=== PATIENT | female | born 1985 | race Caucasian/White ===

== ENCOUNTER 2020-12-21 03:41 | Emergency (ER) | payer BC ==
[~2020-12-21 03:41] MED LIST: ISIBLOOM 28 DA1 EACH PO; PRISTIQ50 M1 PO; ZOFRAN ODT4 MG PO
[2020-12-21] MEDS ORDERED: ATIVAN1 M1 PO (03:53)
[2020-12-21] MEDS ORDERED: PRISTIQ100 MG PO (03:54)
[2020-12-21] MEDS ORDERED: PREDNISONE20 M1 PO (05:23)
[2020-12-21 07:01] VITALS: BP 119/55
== END 2020-12-21 07:01 | disposition home or self-care (01) ==
LOC: ED 03:41
DX: R06.4 Hyperventilation (principal); R09.81 Nasal congestion; F41.0 Panic disorder [episodic paroxysmal anxiety]; Z79.899 Other long term (current) drug therapy
CPT/HCPCS: J7512

== ENCOUNTER → 2021-10-05 | Outpatient (CLI) | payer BC ==
[~2021-10-05] MED LIST changes: +ATIVAN1 M1 PO; +PREDNISONE20 M1 PO; +PRISTIQ100 MG PO
[2021-10-05 12:35] LABS: BASO # 0.04 K/mm3 (0.02-0.10); EOS # 0.02 K/mm3 (0.04-0.40); EOS % 0.2 % (1.0-5.0); HEMATOCRIT 44.5 % (37.0-47.0); HEMOGLOBIN 14.6 g/dL (12.5-16.0); MEAN CELL VOLUME 92 fl (78-100); MEAN CORPUSCULAR HEMOGLOBIN 30 pg (27-31); MEAN CORPUSCULAR HGB CONC 33 g/dL (33-37); MEAN PLATELET VOLUME 9.9 fl (7.4-10.4); MONO # 0.49 K/mm3 (0.20-0.80); NEU # 6.52 K/mm3 (1.40-6.50); PLATELET COUNT 315 K/mm3 (130-400); RED BLOOD COUNT 4.86 M/mm3 (4.10-5.30); RED CELL DISTRIBUTION WIDTH 12.4 % (11.5-14.5); WHITE BLOOD COUNT 9.6 K/mm3 (4.8-10.8)
[2021-10-05 12:45] LABS: ALBUMIN 4.3 g/dL (3.5-5.0); POTASSIUM 3.8 mmol/L (3.5-5.1)
[2021-10-05 12:46] LABS: CALCIUM 9.3 mg/dL (8.3-10.5)
[2021-10-05 12:48] LABS: TOTAL PROTEIN 7.4 g/dL (6.4-8.3)
[2021-10-05 12:49] LABS: TOTAL BILIRUBIN 0.4 mg/dL (0.2-1.2)
[2021-10-05 22:18] LABS: FOLLICLE STIMULATING HORMONE 3.8 mIU/mL (()); LUTENIZING HORMONE 1.8 mIU/mL (()); PROGESTERONE 8.8 ng/mL (())
== END ==
LOC: LAB 12:11
PROVIDERS: Family Medicine
DX: Z00.00 Encounter for general adult medical examination without abnormal findings (principal); E78.5 Hyperlipidemia, unspecified; J30.9 Allergic rhinitis, unspecified; N92.1 Excessive and frequent menstruation with irregular cycle; E66.3 Overweight; K21.9 Gastro-esophageal reflux disease without esophagitis; E03.9 Hypothyroidism, unspecified